=== PATIENT | male | born 1970 | race Caucasian/White ===

== ENCOUNTER 2016-12-01 17:39 | Inpatient (IN) | payer BC, OTHER ==
[2016-12-01] MEDS ORDERED: BABY ASPIRIN PO ONE (18:40)
--- NOTE | 2016-12-01 19:04 | Emergency Department Report ---
ED Chest Pain HPI - General Chief Complaint: Chest Pain Stated Complaint: CHEST PAIN Time Seen by Provider: 12/01/16 18:28 Source: patient, EMS Mode of arrival: Stretcher Limitations: No Limitations - History of Present Illness Initial Comments: This is a 46-year-old male presents the emergency department by EMS with complaint of some nausea, dizziness and lightheadedness and some pain that started in the epigastrum that went up into the mid chest and over towards the left axilla. He denies any shortness of breath, fever, back pain or diaphoresis. 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 He did not take anything for his symptoms prior to Presentation. He has a past medical history of hypertension. He denies any tobacco or illicit drug use or abuse. No recent travel or sick contacts at home. He goes to a primary care physician in [facility]. Severity scale (0 -10): 10 - Related Data Home Medications Medication Instructions Recorded Confirmed Last Taken Ibuprofen [Motrin 200 MG tab] 200 mg PO PRN PRN 12/01/16 12/01/16 Unknown Lisinopril/Hydrochlorothiazide 1 tab PO QDAY 12/01/16 12/01/16 Unknown [Zestoretic 20-12.5 mg] Temazepam [Restoril] 30 mg PO PRN 12/01/16 12/01/16 Unknown traMADol [Ultram 50 MG tab] 50 mg PO PRN PRN 12/01/16 12/01/16 Unknown Allergies Allergy/AdvReac Type Severity Reaction Status Date / Time morphine Allergy Anaphylaxis Verified 12/01/16 19:39 Penicillins Allergy Anaphylaxis Verified 12/01/16 19:39 Heart Score - HEART Score History: Slightly suspicious EKG: Normal Age: < 45 Risk factors: 1-2 risk factors Troponin: < normal limit HEART Score: 1 - Critical Actions Critical Actions: 0-3 pts:0.9-1.7%risk of adverse cardiac event.Candidate for discharge ED Review of Systems ROS: Stated complaint: CHEST PAIN Other details as noted in HPI Comment: All other systems reviewed and negative Constitutional: denies: chills, fever Eyes: denies: eye pain, eye discharge, vision change ENT: denies: ear pain, throat pain Respiratory: denies: cough, shortness of breath, wheezing Cardiovascular: chest pain. denies: palpitations Gastrointestinal: abdominal pain, nausea Genitourinary: denies: urgency, dysuria Musculoskeletal: denies: back pain, joint swelling, arthralgia Skin: denies: rash, lesions Neurological: denies: headache, weakness, paresthesias ED Past Medical Hx - Past Medical History Previous Medical History?: Yes Hx Hypertension: Yes - Surgical History Past Surgical History?: Yes Hx Cholecystectomy: Yes (2016) - Social History Smoking Status: Never Smoker Substance Use Type: None - Medications Home Medications: Home Medications Medication Instructions Recorded Confirmed Last Taken Type Ibuprofen [Motrin 200 MG tab] 200 mg PO PRN PRN 12/01/16 12/01/16 Unknown History Lisinopril/Hydrochlorothiazide 1 tab PO QDAY 12/01/16 12/01/16 Unknown History [Zestoretic 20-12.5 mg] Temazepam [Restoril] 30 mg PO PRN 12/01/16 12/01/16 Unknown History traMADol [Ultram 50 MG tab] 50 mg PO PRN PRN 12/01/16 12/01/16 Unknown History ED Physical Exam - General Limitations: No Limitations - Other Other exam information: GENERAL: The patient is well-developed well-nourished. ENT: Normocephalic. Atraumatic. Patient has moist mucous membranes. EYES: Extraocular motions are intact. Pupils equal reactive to light bilaterally. No nystagmus. NECK: Supple. Trachea is mid line. CHEST/LUNGS: Clear to auscultation. There is no respiratory distress noted. HEART/CARDIOVASCULAR: Regular. There is mild to moderate tachycardia. There is no gallop rub or murmur. ABDOMEN: Abdomen is soft, nontender. Patient has normal bowel sounds. There is no abdominal distention. SKIN: Skin is warm and dry. NEURO: The patient is awake, alert, and oriented. The patient is cooperative. The patient has no sensory or motor deficits. The patient has normal speech and gait. MUSCULOSKELETAL: There is no tenderness or deformity. There is no limitation range of motion. There is no evidence of acute injury. ED Course Vital Signs 12/01/16 12/01/16 12/01/16 17:42 17:44 17:55 Temperature 97.4 F L Pulse Rate 74 81 Respiratory 21 21 Rate Blood Pressure 148/107 Blood Pressure [Left] O2 Sat by Pulse 100 Oximetry 12/01/16 12/01/16 12/01/16 18:00 18:30 18:56 Temperature 97.8 F Pulse Rate 79 81 76 Respiratory 13 9 L 19 Rate Blood Pressure 157/109 163/95 Blood Pressure 154/101 [Left] O2 Sat by Pulse 99 98 96 Oximetry 12/01/16 12/01/16 12/01/16 19:01 19:31 20:00 Temperature Pulse Rate 79 85 Respiratory 12 10 L 13 Rate Blood Pressure 154/101 163/95 140/86 Blood Pressure [Left] O2 Sat by Pulse 99 95 93 Oximetry 12/01/16 12/01/16 12/01/16 20:30 21:00 21:30 Temperature Pulse Rate 80 75 75 Respiratory 11 L 14 14 Rate Blood Pressure 140/97 148/100 135/92 Blood Pressure [Left] O2 Sat by Pulse 96 95 Oximetry 12/01/16 22:00 Temperature Pulse Rate 75 Respiratory 13 Rate Blood Pressure 150/102 Blood Pressure [Left] O2 Sat by Pulse 95 Oximetry ELLY score - Elly Score Age > 65: (0) No Aspirin use within the Past 7 Days: (0) No 3 or more CAD Risk Factors: (0) No 2 or more Angina events in past 24 hrs: (1) Yes Known CAD with more than 50% Stenosis: (0) No Elevated Cardiac Markers: (0) No ST Deviation Greater than 0.5mm: (0) No ELLY Score: 1 ED Medical Decision Making - Lab Data Result diagrams: 12/01/16 18:59 12/01/16 18:59 - EKG Data -: EKG Interpreted by Me EKG shows normal: sinus rhythm, axis, intervals, QRS complexes, ST-T waves Rate: normal - EKG Data When compared to previous EKG there are: previous EKG unavailable Interpretation: normal EKG - Radiology Data Radiology results: image reviewed interpreted by me: Chest x-ray does not show any pleural effusion, obvious signs of pneumonia or any pneumothorax. No acute process noted. - Medical Decision Making 46-year-old male presents emergency Department with some pain that starts in the epigastrium and goes up towards the chest. EKG does not show any signs of a similar admission NV, ischemia or dysrhythmia. Chest x-ray does not show any acute process. Patient has negative troponins 3 and a negative d-dimer. However despite giving the patient pain medication, the patient still complains of chest discomfort and has not had a full cardiac workup ever including a stress test or an echocardiogram. This reason the patient be admitted to hospital for further evaluation and treatment and has been accepted for admission by the hospitalist, Dr. Triplett - Differential Diagnosis costochondritis, NV, PE, gastric ulcer Critical Care Time: No Critical care attestation.: If time is entered above; I have spent that time in minutes in the direct care of this critically ill patient, excluding procedure time. ED Disposition Clinical Impression: Epigastric abdominal pain Chest pain Qualifiers: Chest pain type: unspecified Qualified Code(s): R07.9 - Chest pain, unspecified Hypertension Qualifiers: Hypertension type: essential hypertension Qualified Code(s): I10 - Essential ( primary) hypertension Disposition: OP ADMIT IP TO THIS HOSP Is pt being admited?: Yes Condition: Stable Instructions: Chest Pain (ED), Hypertension (ED) Referrals: PRIMARY CARE, [Primary Care Provider] - 3-5 Days Time of Disposition: 01:13
[2016-12-01 19:28] LABS: Basophils % (Auto) 0.7 % (0.0-1.8); Eosinophils % (Auto) 0.2 % (0.0-4.3); Hematocrit 43.2 % (35.5-45.6); Hemoglobin 15.3 gm/dl (11.8-15.2); Mean Corpuscular HGB Conc 35 % (32-34); Mean Corpuscular Hemoglobin 32 pg (28-32); Mean Corpuscular Volume 89 fl (84-94); Platelet Count 257 K/mm3 (140-440); Red Blood Count 4.84 M/mm3 (3.65-5.03); Red Cell Distribution Width 13.3 % (13.2-15.2); White Blood Count 7.9 K/mm3 (4.5-11.0)
[2016-12-01 19:32] LABS: Anion Gap 22 mmol/L; BUN/Creatinine Ratio 22.85; Blood Urea Nitrogen 16 mg/dL (9-20); Carbon Dioxide 24 mmol/L (22-30); Chloride 96.4 mmol/L (98-107); Glucose 122 mg/dL (75-100); Potassium 3.4 mmol/L (3.6-5.0); Sodium 139 mmol/L (137-145)
[2016-12-01] MEDS ORDERED: ZOFRAN ONE (19:37)
[2016-12-01 19:56] LABS: Albumin 4.8 g/dL (3.9-5); Albumin/Globulin Ratio 1.7 %; Bilirubin,Direct 0.2 mg/dL (0-0.2); Bilirubin,Indirect 1.4 mg/dL; Bilirubin,Total 1.6 mg/dL (0.1-1.2); Total Protein 7.6 g/dL (6.3-8.2)
[2016-12-01] MEDS ORDERED: ZOFRAN IV ONE (20:05)
[2016-12-01] MEDS ORDERED: TORADOL IV ONE (22:40)
[2016-12-01] MEDS ORDERED: TORADOL ONE (22:40)
[2016-12-01] MEDS ORDERED: LIDOCAINE VISCOUS 2% PO ONE (23:57)
[2016-12-01] MEDS ORDERED: ALUM-MAG HYDROX-SIMETH 200-200-20MG/5ML PO ONE (23:57)
[2016-12-02] MEDS ORDERED: APRESOLINE IV PRN (02:33)
[2016-12-02] MEDS ORDERED: SODIUM CHLORIDE FLUSH SYRINGE 10 ML IV PRN (02:33)
--- NOTE | 2016-12-02 02:33 | History and Physical Report ---
History of Present Illness Date of examination: 12/02/16 History of present illness: 46-year-old man with a history of hypertension comes emergency room with complaint of chest pain which she describes as a tightness in the left chest and epigastric area. The patient has been intermittent in nature, unable to say how long it lasts for, intensity 5/10, no radiation any cannot identify exacerbating or relieving factors. Admits to nausea, shortness of breath, no diaphoresis or palpitation Review Of Systems: Constitutional: no fever, chills, weight loss Ears, eyes, nose, mouth and throat: no nasal congestion, no nasal discharge, no sinus pressure, blurry vision, diplopia Neck: No neck pain or rigidity. Cardiovascular orthopnea, palpitations Respiratory: No shortness of breath, cough Gastrointestinal: abdominal pain, hematochezia Genitourinary : no dysuria, frequency , hematuria Musculoskeletal: no joint swelling or muscle ache Integumentary: no rash, no pruritis Neurological: no parathesias, focal weakness Endocrine: no cold or heat intolerance, no polyuria or polydipsia Hematologic/Lymphatic: no easy bruising, no easy bleeding, no gland swelling Allergic/Immunologic: no urticaria, no angioedema. PAST MEDICAL HISTORY: Hypertension PAST SURGICAL HISTORY: Cholecystectomy FAMILY HISTORY:Hypertension SOCIAL HISTORY: Denies alcohol, tobacco, drugs Medications and Allergies Allergies Allergy/AdvReac Type Severity Reaction Status Date / Time morphine Allergy Anaphylaxis Verified 12/01/16 19:39 Penicillins Allergy Anaphylaxis Verified 12/01/16 19:39 Home Medications Medication Instructions Recorded Confirmed Last Taken Type Ibuprofen [Motrin 200 MG tab] 200 mg PO PRN PRN 12/01/16 12/01/16 Unknown History Lisinopril/Hydrochlorothiazide 1 tab PO QDAY #30 tablet 12/02/16 Unknown Rx [Zestoretic 20-12.5 mg] Pantoprazole [Protonix] 40 mg PO QDAY #30 tablet 12/02/16 Unknown Rx Temazepam [Restoril] 30 mg PO PRN #30 capsule 12/02/16 Unknown Rx traMADol [Ultram 50 MG tab] 50 mg PO PRN PRN #15 tablet 12/02/16 Unknown Rx Exam - Physical Exam Narrative exam: Gen. appearance: Patient lying in bed, no apparent distress HEENT: Normocephalic, atraumatic, pupils equally round and reactive to light, extraocular movement intact, and no sclericterus,. No JVD or thyromegaly or nodule,neck supple, no carotid bruit ,mucous membranes moist, no exudate or erythema Heart: S1, S2, regular rate and rhythm Lungs: Clear to auscultation bilaterally, breathing comfortable Abdomen: Positive bowel sounds, nontender, nondistended, no organomegaly Extremity: No edema, cyanosis, clubbing Skin: No rash, nodules, warm, dry Neuro: Oriented 3, cranial nerves II-12 intact, speech is fluent, motor and sensory intact - Constitutional Vitals: Temp Pulse Resp BP Pulse Ox 97.8 F 75 13 150/102 95 12/01/16 18:56 12/01/16 22:00 12/01/16 22:00 12/01/16 22:00 12/01/16 22:00 Results - Labs CBC & Chem 7: 12/02/16 02:56 12/02/16 02:56 Labs: Abnormal lab results 12/01/16 12/01/16 12/01/16 Range/Units 18:56 18:59 18:59 Hgb 15.3 H (11.8-15.2) gm/dl MCHC 35 H (32-34) % Seg Neutrophils % 79.9 H (40.0-70.0) % Potassium 3.4 L (3.6-5.0) mmol/L Chloride 96.4 L (98-107) mmol/L Creatinine 0.7 L (0.8-1.5) mg/dL Glucose 122 H (75-100) mg/dL Calcium 11.0 H (8.4-10.2) mg/dL Total Bilirubin 1.60 H (0.1-1.2) mg/dL - Imaging and Cardiology EKG: image reviewed Chest x-ray: image reviewed Assessment and Plan Assessment Chest pain Hypertension Plan Admit to medicine Check cardiac enzymes, lipid profile, stress test Start Pain medication, DVT prophylaxis
[2016-12-02] MEDS ORDERED: MILK OF MAGNESIA PO PRN (02:34)
[2016-12-02] MEDS ORDERED: TYLENOL PO PRN (02:34)
[2016-12-02] MEDS ORDERED: ZOFRAN IV PRN (02:34)
[2016-12-02] MEDS ORDERED: DULCOLAX PR PRN (02:34)
[2016-12-02 03:14] LABS: Basophils % (Auto) 0.7 % (0.0-1.8); Eosinophils % (Auto) 1.6 % (0.0-4.3); Hematocrit 44.4 % (35.5-45.6); Hemoglobin 15.6 gm/dl (11.8-15.2); Mean Corpuscular HGB Conc 35 % (32-34); Mean Corpuscular Hemoglobin 32 pg (28-32); Mean Corpuscular Volume 90 fl (84-94); Platelet Count 261 K/mm3 (140-440); Red Blood Count 4.92 M/mm3 (3.65-5.03); Red Cell Distribution Width 13.6 % (13.2-15.2); White Blood Count 7.4 K/mm3 (4.5-11.0)
[2016-12-02 03:30] LABS: Anion Gap 20 mmol/L; BUN/Creatinine Ratio 18.75; Blood Urea Nitrogen 15 mg/dL (9-20); Calcium 11.6 mg/dL (8.4-10.2); Carbon Dioxide 28 mmol/L (22-30); Chloride 99.6 mmol/L (98-107); Glucose 102 mg/dL (75-100); Potassium 4.6 mmol/L (3.6-5.0); Sodium 143 mmol/L (137-145)
--- NOTE | 2016-12-02 03:48 | Ultrasound Report ---
FINAL REPORT EXAM: US ABDOMEN COMPLETE HISTORY: abd pain COMPARISON: None available. TECHNIQUE: Several real-time grayscale and color Doppler images were obtained. FINDINGS: There is increased echogenicity of the liver compatible with fatty infiltration. Hypoechoic lesion at the inferior margin of the right hepatic lobe towards the gallbladder fossa which may reflect area of fatty sparing. Focal hepatic lesion cannot be excluded measuring 3.0 x 2.1 x 4.0 centimeters. Right kidney measures 11.9 centimeters in length. Left kidney measures 12.8 centimeters in length. No hydronephrosis. Spleen is normal in size measuring 9.4 centimeters in length. Bowel gas obscures the pancreas. The common bile duct measures 4 millimeters within normal limits. Gallbladder surgically absent. IMPRESSION: Gallbladder surgically absent. No biliary dilatation. Prominent diffuse fatty infiltration of the liver. Possible area of fatty sparing versus hypoechoic lesion towards the gallbladder fossa measuring 3.0 centimeters[address] for further evaluation on a nonemergent outpatient basis. No hydronephrosis. Bowel gas obscures the pancreas.
[2016-12-02] MEDS ORDERED: APRESOLINE ONE (03:59)
[2016-12-02] MEDS: TORADOL IV PRN ×2 (04:37→14:05)
--- NOTE | 2016-12-02 08:16 | Admit Criteria Form ---
Admission Criteria Documentation: CARDIOLOGY GRG Clinical Indications for Admission to Inpatient Care ([place]/check or initial the applicable condition/criteria) Hospital admission is needed for appropriate care of the patient because of ANY ONE of the following: [ ] I. Hemodynamic instability as indicated by ALL of the following (1)(2)(3) (4)(5)(6)(7)(8)(9)(10) [ ]a) Vital sign abnormality not readily corrected by appropriate treatment with 12-24 hours for ANY ONE: [ ]i) Hypotension that persists despite appropriate treatment (eg, volume repletion) [ ]ii) Tachycardiathat persists despite appropriate tx ( e.g., analgesia, fluids, sedation as indicated [ ]iii) Orthostatic vital sign changes that persists despite appropriate treatment (eg, volume repletion) [ ]b) Vital sign abnormailty that is severe indicated by ANY ONE of the following: [ ]i) Inadequate perfusion indicated by ANY ONE of the following: [ ] 1) Lactic acidosis (> 2 mmol/L) [ ] 2) New abnormal capillary refill (> 3 seconds) [ ] 3) Reduced urine output [ ] 4) New altered mental status [ ] 5) Myocardial Ischemia [ ] 6) Other metabolic acidosis (arterial pH <7.35 ) not otherwise explained. [ ]ii) Mean arterial pressure[A] less than 60 mm Hg [ ]iii) Mean arterial pressure[A] less than 70 mm Hg after 30 minutes of appropriate treatment (eg, fluid resuscitation) [ ]iv) Sustained heart rate greater than 120 beats per minute in adult or child 6 years or older[B] [ ]v) IV inotropic or vasopressor medication required to maintain adequate blood pressure or perfusion [ ] II. Severe heart failure as indicated by ANY ONE of the following(17)(18) [ ]a) Respiratory distress [ ]b) Hypotension [ ]c) Debilitating anasarca refractory to therapy (eg, tissue breakdown with infection)[C](19) [ ]d) Cardiac arrhythmias of immediate concern [ ]e) Myocardial ischemia [ ] III. Cardiac arrhythmias or findings of immediate concern indicated by ANY ONE of the following (21)(22): [ ] a) Heart rhythms that are inherently dangerous or unstable indicated by ANY ONE of the following (23)(24)(25): [ ] i) Resuscitated ventricular fibrillation or cardiac arrest [ ] ii) Ventricular escape rhythm [ ] iii) Sustained ventricular tachycardia (30 seconds or more of ventricular rhythm at greater than 100 beats per minute) [ ] iv) Nonsustained ventricular tachycardia and ANY ONE of the following: [ ] 1) Suspected cardiac ischemia as cause or consequence of ventricular tachycardia [ ] 2) Acute myocarditis [ ] b) Unstable cardiac conduction defects indicated by ANY ONE of the following(25)(26)(27) [ ] i) Type II second-degree atrioventricular block [ ]ii) Third-degree atrioventricular block [ ]iii) New-onset left bundle branch block with suspected myocardial ischemia [ ]c) Any heart rhythm and ANY ONE of the following (23)(24)(28)(29) (30) [ ] i) Continuous long-term ECG monitoring needed (e.g., initiation of drug requiring monitoring for more than 24 hours) [ ] ii) Patient has automatic implanted cardioverter defibrillator that is repeatedly firing, malfunctioning, or in need of immediate adjustment of settings beyond the scope of ambulatory or observation care [ ]d) Heart rhythms of concern due to ANY ONE of the following: [ ] i) Hypotension [ ] ii) Respiratory distress [ ] iii) Association with other significant symptoms (e.g., bradycardia with syncope or ongoing dizziness, supraventricular tachycardia with chest pain (28)(29)(31) [ ] IV. Monitoring for cardiac contusion beyond the scope of observation care needed [A](32)(33)(34) [ ] V. Surgical or device complication (e.g., valve replacement complication , ICD disfunction or pacemaker dysfunction) (49)(50)(51)(52)(53)(54) [ ] . Inpatient palliative care needed. [F](51)(52) Also use Inpatient Palliative Care Criteria [ ] VII. Nonbacterial thrombotic (marantic) endocarditis(43)(44)(55)(56)(57) [ X] VIII. Cardiology condition, symptom, or finding for which emergency and observation care has failed or are not considered appropriate. [ ] IX. Acute valvular disease requiring inpatient as indicated by ANY ONE of the following (40)(41) [ ]a) Acute valvular regurgitation (42) [ ]b) Noninfectious valvulitis (43)(44) [ ]c) Obstructive valve thrombosis (45)(46) [ ]d) Paravalvular leak(47)(48) [ ]e) Other significant valvular disorder remaining after emergency or observation level of care (as appropriate) [ ]X. Pericardial disease requiring inpatient treatment as indicated by ANY ONE of the following (35)(36)(37)(38) [ ]a) Suspected tamponade [ ]b) Hemopericardium [ ]c) Other significant pericardial disorder remaining after emergency or observation level of care (as appropriate)(39) [ ] XI. Cardiac ischemia beyond scope of emergency and observation care. [ ] XII. Cyanotic heart disease requiring inpatient care as indicated by 1 or more of the following(58)(59)(60): [ ]a) Acute onset of hypoxemia [ ]b) Exacerbation [ ] XIII. Hypertension requiring inpatient treatment as indicated by ANYONE of the following(11)(12)(13)(14): [ ]a) Severe hypertension (SBP greater than 180 mm Hg or DBP greater than 110 mm Hg, or greater than the 95th percentile for age, gender, and height in pediatric patients) that cannot be controlled (eg, to SBP less than 160 mm Hg and DBP less than 100 mm Hg) by emergency department or observation care treatment(15) [ ]b) Acute end organ damage secondary to hypertension (SBP greater than 140 mm Hg or DBP greater than 90 mm Hg) as indicated by ANYONE of the following: [ ] i) Hypertensive encephalopathy (eg, Altered mental status)(16) [ ] ii) Cerebral infarction [ ] iii) Intracranial hemorrhage [ ] iv) Myocardial ischemia or infarction [ ] v) Heart failure (eg, pulmonary edema) [ ] vi) Aortic dissection [ ] vii) Increased creatinine (new) with reduction of more than 50% in estimated glomerular filtration rate from baseline [ ] viii) Papilledema [ ] ix) Retinal hemorrhage [ ] x) Microangiopathic hemolytic anemia [ ] xi) Seizure [ ] xii) Other significant finding secondary to hypertension [ ] XIV. Complications of transplanted heart indicated by ANY ONE of the following(61): [ ]a) Acute graft rejection requiring inpatient management (eg, intravenous imunosuppression)(62)(63) [ ]b) Acute graft heart failure indicated by ANY ONE of the following(64): [ ] i) Hemodynamic instability [ ] ii) Cardiac arrhythmias of immediate concern [ ] iii) Pulmonary edema that is very severe (eg, mechanical ventilation needed, imminent or likely, need for 100% oxygen to keep oxygen saturation above 90%) [ ] iv) Pulmonary edema that is persistent as indicated by ALL of the following: [ ] 1) New need for oxygen therapy to keep oxygen saturation above 90 % (or increased FiO2 need from baseline) [ ] 2) Has not improved sufficiently with emergency department or observation care IV diuretics or other heart failure treatments[E]. [ ] iv) Altered mental status that is severe or persistent [ ] iv) Increased creatinine (new on laboratory test) with reduction of more than 50% in estimated glomerular filtration rate from baseline [ ] iv) Progressively (ongoing) rising creatinine (known from past laboratory test) with reduction of more than 25% in estimated glomerular filtration rate from baseline [ ] iv) Acute renal failure [ ] iv) Acute peripheral ischemia (eg, examination shows pulseless, cool, mottled, or cyanotic extremity) [ ] iv) Pulmonary artery catheter monitoring needed [ ] iv) Other sign or symptom of heart failure requiring inpatient treatment (ie, too severe or not responsive to outpatient and observation care treatment) [ ]c) Infection requiring inpatient management (eg, Hemodynamic instability, need for intravenous antimicrobial treatment)(66)(67)(68)(69)(70) [ ]d) Cardiac allograft vasculopathy requiring inpatient management (eg evidence of cardiacischemia)(71) [ ]e) Other complication of transplanted heart (eg, stroke, severe pulmonary hypertension, severe valvular dysfunction) requiring inpatient management(72) The original [employer] content created by [employer] has been revised. The portions of the content which have been revised are identified through the use of italic text or in bold, and [facility] has neither reviewed nor approved the modified material. All other unmodified content is copyright [employer]. Please see references footnoted in the original [employer] edition 2017 Admission Criteria Met: Yes
--- NOTE | 2016-12-02 08:25 | XRay Report ---
PORTABLE CHEST INDICATION: Chest pain. COMPARISON: None similar at this institution. FINDINGS: Portable, frontal chest radiograph demonstrates slight exaggerated, though grossly normal cardiomediastinal silhouette, given the inspiration. Minimally crowded lung markings centrally as well without focal consolidation, pleural effusions or CHF. Air-filled gastric fundus minimally elevates the left hemidiaphragm. Intact bones. EKG leads. CONCLUSION: No significant acute chest process, as described. Thank you for the opportunity to participate in this patient's care.
--- NOTE | 2016-12-02 08:48 | Discharge Summary ---
Providers - Providers Date of Admission: 12/02/16 02:34 Date of discharge: 12/03/16 Attending physician: SUZANNE DAN Primary care physician: J[employer] Hospitalization Reason for admission: cp Condition: Stable Hospital course: This is a 56-year-old male with significant past medical history of hypertension who presented to the emergency room with chief complaint of chest pain. Patient described the pain as a tightness in the left chest. Patient also reported the chest pain was intermittent in nature and of 5/10 intensity with no radiation. Patient could not quantify duration and reported no exacerbating or relieving factors. Patient admitted to nausea and shortness of breath. However, patient denied diaphoresis or palpitations. Patient was evaluated with EKG, telemetry monitoring and cardiac isoenzymes which were all found to be within normal limits. Patient also underwent stress test which was found to be negative. Patient also complained of epigastric pain and underwent abdominal ultrasound which revealed prominent diffuse fatty infiltration of the liver and possible lesion towards the gallbladder fossa. CT scan was recommended for further evaluation. CT scan of the abdomen reveals subtle hypoechogenicity in the liver that may represent focal fatty infiltration. Etiology of chest pain/epigastric is most likely secondary to GERD. Patient will be discharged with Protonix. The dictated discharge time 32 minutes. Disposition: [id number] TO HOME OR SELFCARE Time spent for discharge: 32 - Discharge Diagnoses (1) GERD (gastroesophageal reflux disease) Status: Acute Qualifiers: Esophagitis presence: E (2) Chest pain Status: Acute Qualifiers: Chest pain type: unspecified Ischemic chest pain type: I Qualified Code(s ): R07.9 - Chest pain, unspecified (3) Epigastric abdominal pain Status: Acute (4) Hypertension Status: Acute Qualifiers: Hypertension type: essential hypertension Qualified Code(s): I10 - Essential (primary) hypertension Core Measure Documentation - Palliative Care Palliative Care/ Comfort Measures: Not Applicable - Core Measures Any of the following diagnoses?: none Exam - Constitutional Vitals: Temp Pulse Resp BP Pulse Ox 98.2 F 80 18 160/102 99 12/02/16 04:47 12/02/16 05:12 12/02/16 05:12 12/02/16 04:47 12/02/16 04:47 General appearance: Present: no acute distress, well-nourished - EENT Eyes: Present: PERRL ENT: hearing intact, clear oral mucosa - Neck Neck: Present: supple, normal ROM - Respiratory Respiratory effort: normal Respiratory: bilateral: CTA - Cardiovascular Heart Sounds: Present: S1 & S2. Absent: rub, click - Extremities Extremities: pulses symmetrical, No edema Peripheral Pulses: within normal limits - Abdominal General gastrointestinal: Present: soft, non-tender, non-distended, normal bowel sounds Male genitourinary: Present: normal - Integumentary Integumentary: Present: clear, warm, dry - Musculoskeletal Musculoskeletal: gait normal, strength equal bilaterally - Psychiatric Psychiatric: appropriate mood/affect, intact judgment & insight - Neurologic Neurologic: CNII-XII intact, moves all extremities Plan Activity: no restrictions Weight Bearing Status: Full Weight Bearing Diet: low fat, low cholesterol, low salt Follow up with: PRIMARY CARE,MD [Primary Care Provider] - 3-5 Days Prescriptions: Lisinopril/Hydrochlorothiazide [Zestoretic 20-12.5 mg] 1 tab PO QDAY #30 tablet Pantoprazole [Protonix] 40 mg PO QDAY #30 tablet Temazepam [Restoril] 30 mg PO PRN #30 capsule traMADol [Ultram 50 MG tab] 50 mg PO PRN PRN #15 tablet PRN Reason: Pain
[2016-12-02] MEDS ORDERED: LEXISCAN IV ONE (12:20)
[2016-12-02] MEDS: LOVENOX SUB-Q SCH (13:51)
--- NOTE | 2016-12-02 21:33 | Treadmill Report ---
NUCLEAR STRESS TEST The patient is brought to the Cardiology lab and a nuclear stress test is performed by administering intravenous Lexiscan. The patient tolerated the procedure well. Post-stress images reveal fairly homogeneous distribution of the isotope with no significant reversibility to indicate ischemia. Accompanying gated study shows excellent systolic function with no wall motion abnormalities. IMPRESSION: 1. Dual isotope study is negative for reversible defects to indicate ischemia. 2. Good systolic function with a calculated ejection fraction of 71%. Suggest clinical correlation. JOB# [id number] KB/NTS
[2016-12-03] MEDS: TORADOL IV PRN (07:42)
--- NOTE | 2016-12-03 10:58 | Cat Scan Report ---
CT abdomen without contrast: Abdominal pain. Transverse images are obtained from the lower chest to the ischium. Coronal and sagittal 2-D reformatted images included. The visualized lung bases are clear. The liver is normal in size and contour. There is a rather vague area of slightly diminished attenuation near the caudate lobe. This measures approximately 4 cm in size. The gallbladder has been removed. The pancreas is unremarkable. The retroperitoneal organs are unremarkable including the abdominal aorta. The partially opacified bowel and mesentery appear normal. The appendix is visualized. No inflammatory change is noted. No calcifications are identified in the prostate. Impression: Subtle hypoechogenicity in the liver that may represent focal fatty infiltration. The findings however do not correspond well with those described on recent ultrasound.
[2016-12-03] MEDS: LOVENOX SUB-Q SCH (11:28)
[2016-12-03 13:37] VITALS: BP 140/99
== END 2016-12-03 15:46 | disposition home or self-care (01) | DRG 392 ==
LOC: ED 17:39 → 4A 12-02 02:34
PROVIDERS: ADMIT Internal Medicine; ATTEND Hospitalist
DX: K21.9 Gastro-esophageal reflux disease without esophagitis (principal); K76.0 Fatty (change of) liver, not elsewhere classified; I10 Essential (primary) hypertension; Z79.899 Other long term (current) drug therapy; Z90.49 Acquired absence of other specified parts of digestive tract; Z82.49 Family history of ischemic heart disease and other diseases of the circulatory system; Z88.5 Allergy status to narcotic agent; Z88.0 Allergy status to penicillin
CPT/HCPCS: 36415; 71010; 74176; 76700; 78452; 80048; 80074; 83690; 84484; 85025; 85379; 93005; 93010; 93017; 96374; 96375; A9502; J0360; J1650; J1885; J2405; J2785